=== PATIENT | female | born 1965 | race African-American/Black ===

== ENCOUNTER 2016-12-02 19:54 | Emergency (ER) | payer OTHER ==
[~2016-12-02] VITALS: Ht 170.2 cm; Wt 163.3 kg
[2016-12-02 20:05] VITALS: BP 137/89
--- NOTE | 2016-12-02 20:20 | NUR ---
PATIENT LEFT WITHOUT BEING SEEN BY DR. CARDENAS. NO FURTHER CARE PROVIDED FOR PATIENT.
== END 2016-12-02 20:20 | disposition left against medical advice (07) ==
LOC: MED 19:54
DX: R06.02 Shortness of breath (principal); E11.9 Type 2 diabetes mellitus without complications; F41.9 Anxiety disorder, unspecified; Z53.21 Procedure and treatment not carried out due to patient leaving prior to being seen by health care provider
CPT/HCPCS: 82948